=== PATIENT | male | born 2000 | race Two or more races ===

== ENCOUNTER 2020-06-18 22:30 | Emergency (ER) | payer SELFPAY ==
[~2020-06-18] VITALS: Ht 180.3 cm; Wt 59.0 kg
[2020-06-18 23:08] VITALS: BP 128/62
[2020-06-19] MEDS ORDERED: KETOROLAC TROMETH 60MG/2ML VIAL IM ONE (01:15)
== END 2020-06-19 01:27 | disposition home or self-care (01) ==
LOC: ER 22:30
DX: S46.912A Strain of unspecified muscle, fascia and tendon at shoulder and upper arm level, left arm, initial encounter (principal); M62.838 Other muscle spasm; V19.9XXA Pedal cyclist (driver) (passenger) injured in unspecified traffic accident, initial encounter; Y93.I9 Activity, other involving external motion; Y92.410 Unspecified street and highway as the place of occurrence of the external cause; Y99.8 Other external cause status
CPT/HCPCS: 70450; 72125; 73030; 96372; 99285; J1885